=== PATIENT | female | born 1950 | race Caucasian/White ===

== ENCOUNTER 2016-08-13 09:58 | Day surgery (SDC) | payer MEDICARE, OTHER ==
[~2016-08-13] VITALS: Ht 152.4 cm; Wt 78.0 kg
[~2016-08-13 09:58] MED LIST: ASPI-535 PO; BLOOD PRESSURE MED; CHOLESTEROL MED; NAPR250T PO; OMEP20CA16 PO; metformin
[2016-08-13 10:55] VITALS: Ht 152.4 cm; Wt 78.0 kg
[2016-08-13] MEDS ORDERED: IBUPROFEN (11:04)
[2016-08-13] MEDS ORDERED: LISINOPRIL (11:04)
[2016-08-13] MEDS ORDERED: TRAMADOL (11:04)
[2016-08-13] MEDS ORDERED: CODEINE (11:04)
[2016-08-13] MEDS ORDERED: ATORVASTATIN (11:04)
[2016-08-13 11:29] VITALS: BP 121/61; PULSE 72; RESP 18
[2016-08-13] MEDS ORDERED: FENTAnyl 50 MCG/ML VIAL ONE (11:40)
[2016-08-13] MEDS ORDERED: PROPOFOL 20 ML ONE ×2 (11:40→12:18)
[2016-08-13 12:40] VITALS: BP 124/68; PULSE 64; RESP 18
--- NOTE | 2016-08-13 12:44 | GILP ---
DATE OF PROCEDURE: 08/13/2016 NAME OF PROCEDURES: 1. Esophagogastroduodenoscopy and biopsy. 2. Colonoscopy. SURGEON: Matt Gamble MD PREOPERATIVE DIAGNOSES: 1. Abdominal pain. 2. Chronic heartburn. 3. Change in the bowel habit. 4. History of colon polyps. POSTOPERATIVE DIAGNOSES: 1. Hiatal hernia. 2. Gastroesophageal reflux disease. 3. Gastritis. 4. Gastric polyp on the antrum and biopsies were taken for histopathology. 5. Colonoscopy all the way to the cecum. 6. Diverticulosis of the colon. 7. Internal hemorrhoids. 8. No colon neoplasm was identified. INDICATION FOR THE PROCEDURE: Ms. Whitney Vásquez is a 65-year-old female patient who had upper abdomina l pain and chronic heartburn, not responding to therapy. She also noticed a change in the bowel hab it. She had history of colon polyps. Her last colonoscopy was 10 years ago, so the patient was roman eduled for endoscopy and screening colonoscopy. The procedures and possible complications are well explained to the patient. She understood and con sented to the procedure. DESCRIPTION OF PROCEDURE: Under the influence of anesthesia, the gastroscope was carefully introduc ed into the esophagus and under direct vision it was advanced to the stomach and through the pylorus into the duodenal bulb and descending duodenum. FINDINGS: ESOPHAGUS: The patient had hiatal hernia and gastroesophageal reflux disease. STOMACH: The patient had gastritis. The patient also had a gastric polyp on the antrum and biopsie s were taken for histopathology. DUODENUM: Normal. The colonoscope was carefully introduced in the rectum and under direct vision; it was advanced all the way to the cecum. FINDINGS: The patient had diverticulosis of the colon. She also had internal hemorrhoids. No colo n neoplasm was identified. The patient tolerated the procedures very well and there was no complication from the procedures. A t the end of the procedures, she was awake with stable vital signs and she was discharged home to [facility] her family. IMPRESSION: 1. Hiatal hernia. 2. Gastroesophageal reflux disease. 3. Gastric polyp on the antrum and biopsies were taken for histopathology. 4. Gastritis. 5. Colonoscopy all the way to the cecum. 6. Diverticulosis of the colon. 7. Internal hemorrhoids. 8. No colon neoplasm was identified. PLAN: 1. Continue omeprazole. 2. Add Zantac 300 mg p.o. at bedtime. 3. Await histopathology report. 4. Next screening colonoscopy in 10 years. Dictated By: MATT GONZALEZ/NUSRAT Conf#: [id number] DID#: [id number] CC: MATT GAMBLE MD;*EndCC*
== END 2016-08-13 15:24 | disposition home or self-care (01) ==
LOC: GIL 09:58
PROVIDERS: ATTEND Internal Medicine Gastroenterology
DX: R19.4 Change in bowel habit (principal); K44.9 Diaphragmatic hernia without obstruction or gangrene; K29.50 Unspecified chronic gastritis without bleeding; K21.9 Gastro-esophageal reflux disease without esophagitis; K57.90 Diverticulosis of intestine, part unspecified, without perforation or abscess without bleeding; K64.8 Other hemorrhoids; E11.9 Type 2 diabetes mellitus without complications; I10 Essential (primary) hypertension
CPT/HCPCS: 43239; 45378; 82962; 88305; 88312; J3010